=== PATIENT | male | born 1950 | race Caucasian/White ===

== ENCOUNTER 2024-12-07 06:23 | Day surgery (SDC) | payer MEDICARE, BC ==
[2024-12-07] MEDS: Lactated Ringers 1,000 ML IV SCH (06:38)
[2024-12-07] MEDS ORDERED: fentaNYL 100 MCG/2 ML SDV ONE (07:52)
[2024-12-07] MEDS ORDERED: Propofol 200 MG/20 ML SDV ONE ×2 (07:52→08:19)
[2024-12-27] MEDS ORDERED: Lactated Ringers 1,000 ML IV SCH (07:00)
== END 2024-12-07 09:45 | disposition home or self-care (01) ==
LOC: VM.SDS 06:23
PROVIDERS: ATTEND Student in an Organized Health Care Education/Training Program
DX: Z12.11 Encounter for screening for malignant neoplasm of colon (principal); D12.3 Benign neoplasm of transverse colon; D12.5 Benign neoplasm of sigmoid colon; K51.40 Inflammatory polyps of colon without complications; R19.5 Other fecal abnormalities; I10 Essential (primary) hypertension; I48.0 Paroxysmal atrial fibrillation; E66.9 Obesity, unspecified; E11.9 Type 2 diabetes mellitus without complications; Z79.4 Long term (current) use of insulin; Z68.35 Body mass index [BMI] 35.0-35.9, adult; Z79.84 Long term (current) use of oral hypoglycemic drugs; Z79.01 Long term (current) use of anticoagulants; Z79.899 Other long term (current) drug therapy
CPT/HCPCS: 00811; 82947; 88305; 99100; J2704; J3010; J7120